=== PATIENT | male | born 1970 | race Caucasian/White ===

== ENCOUNTER 2017-05-17 17:47 | Emergency (ER) | payer OTHER, BC ==
[~2017-05-17] VITALS: Ht 182.9 cm; Wt 112.5 kg
[~2017-05-17 17:47] MED LIST: ASPIR-TRIN325 M1 PO; BUSPAR10 MG PO; BUSPIRONE HCL10 MG PO; CELEXA40 MG PO; GABAPENTIN300 MG PO; HUMALOG100 UNIT/1 SC; JANUVIA100 MG PO; LEVEMIR100 UNIT/2 SC; LO-DOSE ASPIRIN81 M1 PO; LOSARTAN POTASS25 MG PO; METFORMIN HCL1000 MG PO; METFORMIN HCL500 MG PO; METOPROLOL SUCC50 MG PO; MOTRIN600 MG PO; NAPROSYN500 MG PO; OLANZAPINE10 MG PO; PERCOCET 5/31 TABLET PO; SKELAXIN800 MG PO; TRAMADOL HCL50 MG PO; TRAZODONE HCL50 MG PO
[2017-05-17 18:43] LABS: HEMATOCRIT 39.3 % (38.0-50.0); MCH 30.4 PG (29.0-34.0); MCHC 35.1 G/DL (30.0-36.0); MCV 86.6 FL (86-99); MEAN PLAT.VOLUME 11.6 uM^3 (9.0-12.4); PLATELET COUNT 218 K/uL (156-360); RBC DIS.WIDTH-CV 12.7 % (11.8-14.6); RBC DIS.WIDTH-SD 39.3 % (39-53); RED BLOOD COUNT 4.54 M/uL (4.00-5.50); WHITE BLOOD COUNT 8.1 K/uL (4.1-10.2)
[2017-05-17 18:50] LABS: ADD MIUA? NO; BILIRUBIN NEGATIVE; BLOOD NEGATIVE; COLOR YELLOW ((YELLOW)); GLUCOSE (STRIP) NEGATIVE; KETONES NEGATIVE; LEUKOCYTES NEGATIVE; NITRITE NEGATIVE; PROTEIN (STRIP) NEGATIVE; SPECIFIC GRAVITY 1.011 (1.000-1.030); UROBILINOGEN 0.2 MG/DL (0.2-1.0)
[2017-05-17 19:24] LABS: CHLORIDE 104 mEq/L (99-109); POTASSIUM 3.7 mEq/L (3.7-5.4)
[2017-05-17 19:25] LABS: SODIUM 140 mEq/L (136-147)
[2017-05-17 19:27] LABS: GLUCOSE 153 mg/dL (70-99)
[2017-05-17 19:28] LABS: ANION GAP 10 MEQ/L (2-14)
[2017-05-17 19:29] LABS: TOTAL BILIRUBIN 0.9 mg/dL (0.0-1.0)
[2017-05-17 19:30] LABS: ALKALINE PHOSPHATASE 89 IU/L (3-129); GFR ESTIMATE (CALCULATED) > 59 mL/min/
[2017-05-17 19:32] LABS: UREA NITROGEN (BUN) 17 mg/dL (9-23)
[2017-05-17 19:34] LABS: LIPASE 42 U/L (1.0-51.0)
[2017-05-17] MEDS ORDERED: ULTRAM50 MG PO (19:35)
[2017-05-17] MEDS ORDERED: FLEXERIL10 MG PO (19:35)
[2017-05-17 20:50] VITALS: BP 141/95
== END 2017-05-17 20:51 | disposition home or self-care (01) ==
LOC: EME 17:47
PROVIDERS: Nurse Practitioner Family
DX: S30.1XXA Contusion of abdominal wall, initial encounter (principal); S06.0X0A Concussion without loss of consciousness, initial encounter; V43.62XA Car passenger injured in collision with other type car in traffic accident, initial encounter; Y92.411 Interstate highway as the place of occurrence of the external cause; I10 Essential (primary) hypertension; E78.5 Hyperlipidemia, unspecified; E11.9 Type 2 diabetes mellitus without complications; Z79.84 Long term (current) use of oral hypoglycemic drugs; Z79.82 Long term (current) use of aspirin; Z79.4 Long term (current) use of insulin; Z98.1 Arthrodesis status
CPT/HCPCS: 70450; 71260; 72125; 74177; 80053; 81003; 83690; 85027; J1885; J2270; J2405; J7030